=== PATIENT | male | born 1955 | race African-American/Black ===

== ENCOUNTER 2019-09-01 10:33 | Emergency (ER) | payer OTHER ==
[~2019-09-01] VITALS: Ht 170.2 cm; Wt 81.6 kg
--- OUTSIDE RECORDS SUMMARY | 2019-09-01 10:35 | XMS REPORT | Summary of Care ---
Author Author Mariangel Degroot Organization Unknown Address [facility] Phone Unavailable Care Team Providers Care Finisher [employer] Name Role Phone Mariangel Degroot Unavailable Unavailable KAITLYNN COSTELLO LAJOANNA Unavailable Unavailable Unavailable Unavailable Functional Status Name Dates Details Functional status health issues are not documented Status: Name Dates Details Cognitive status health issues are not documented Status: Problems Name Dates Details Sleep apnea (780.57, G47.30) Status: Active Obstructive lung disease (496, J44.9) Status: Active Decreased diffusion capacity (794.2, R94.2) Status: Active Bronchiectasis (494.0, J47.9) Status: Active Chronic asthma, unspecified asthma severity, unspecified whether complicated, unspecified whether persistent (493.90, J45.909) Status: Active Abnormal CT of the chest (793.2, R93.89) Status: Active Medications Name Dates Details Medications not documented Allergies and Adverse Reactions Name Dates Details Penicillins (Allergy) Status: Active Past Medical History Name Dates Details Bronchiectasis (494.0, J47.9) Status: Active Personal history of asthma (V12.69, Z87.09) Status: Resolved Procedures Procedure Dates Details [facility] Sleep Lab - Sleep Study Split Night Date: 02-Oct-2018 [LH] [id number] Date: 02-Oct-2018 [QLH] IMMUNOGLOBULIN E Date: 02-Oct-2018 [QLH] JANE PANEL, COMPREHENSIVE Date: 02-Oct-2018 [QL] CULTURE, SPUTUM/LOWER RESPIRATORY Date: 02-Oct-2018 [Q] ASPERGILLUS ANTIGEN Date: 02-Oct-2018 [H] Culture: Respiratory w/Gram Stain Date: 02-Oct-2018 [L] Allergen Profile With Total IgE, Respiratory - Area 10 Date: 02-Oct-2018 [LH] AFB Culture and Smear,Broth Date: 02-Oct-2018 [Q] FUNGAL CULTURE, MISCELLANEOUS SOURCE Date: 02-Oct-2018 History of No history of surgery Completed Immunization Name Dates Details Fluzone Quadrivalent 0.5 ML Intramuscular Suspension Lot #: [id number] on: 23-Apr-2018 Prevnar 13 Intramuscular Suspension Lot #: [id number] on: 23-Apr-2018 Social History Name Dates Details - Status: Name Dates Details Never smoker Vital Signs Date Test Result Details [id number] BP Systolic 157 mm[Hg] Status: Comments: Location: LUE; Position: Sitting BP Diastolic 75 mm[Hg] Status: Comments: Location: LUE; Position: Sitting Height 67 in Status: Weight 184.125 lb Status: Body Mass Index Calculated 28.84 kg/m2 Status: Body Surface Area Calculated 1.95 m2 Status: Heart Rate 66 /min Status: Respiration Rate 16 /min Status: O2 SAT 98 % Status: Results Date Description Value Details Results not documented Plan of Care Name Dates Details Planned Observations Planned Goals not documented Planned Encounters Appointment; JOANNA CALDERÓN M.D. On: 04-Dec-2018 13:30 Instructions Name Dates Details Instructions not documented Encounters Appointment; JOANNA CALDERÓN M.D. Encounter Diagnosis: Problem not documented On: 23-Apr-2018 14:30 Appointment; GINGER PINO Encounter Diagnosis: Problem not documented On: 07-May-2018 9:00 Appointment; JOANNA CALDERÓN M.D. Encounter Diagnosis: Problem not documented On: 18-Jun-2018 13:30 Appointment; JOANNA CALDERÓN M.D. Encounter Diagnosis: Problem not documented On: 26-Jun-2018 14:00 Appointment; JOANNA CALDERÓN M.D. Encounter Diagnosis: Problem not documented On: 02-Oct-2018 13:30
--- OUTSIDE RECORDS SUMMARY | 2019-09-01 10:35 | XMS REPORT ---
Author Author [facility] Address Unknown Phone Unavailable Care Team Providers Care Application Processor Name Role Phone Unavailable Unavailable Problems This patient has no known problems. Allergies, Adverse Reactions, Alerts This patient has no known allergies or adverse reactions. Medications This patient has no known medications. Encounters Start Date/Time End Date/Time Encounter Type Admission Type Attending Clinicians Care Facility Care Department Encounter ID 2016-12-15 09:57:00 2016-12-15 09:57:00 Outpatient [facility] [id number]
[2019-09-01 10:40] VITALS: BP 142/86
== END 2019-09-01 10:45 | disposition home or self-care (01) ==
LOC: ER 10:33
DX: S80.871A Other superficial bite, right lower leg, initial encounter (principal); W54.0XXA Bitten by dog, initial encounter; Y92.488 Other paved roadways as the place of occurrence of the external cause
CPT/HCPCS: 99282